=== PATIENT | male | born 1990 ===

== ENCOUNTER 2017-11-08 14:46 | Emergency (ER) | payer OTHER ==
[2017-11-08 15:53] LABS: Basophils # (Auto) 0.1 K/mm3 (0.0-0.1); Basophils % (Auto) 1.1 % (0.0-1.8); Eosinophils % (Auto) 0.4 % (0.0-4.3); Hemoglobin 15.4 gm/dl (11.8-15.2); Lymphocytes # (Auto) 1.9 K/mm3 (1.2-5.4); Lymphocytes % (Auto) 36.8 % (13.4-35.0); Mean Corpuscular HGB Conc 33 % (32-34); Mean Corpuscular Hemoglobin 30 pg (28-32); Mean Corpuscular Volume 90 fl (84-94); Monocytes # (Auto) 0.4 K/mm3 (0.0-0.8); Monocytes % (Auto) 8.2 % (0.0-7.3); Platelet Count 239 K/mm3 (140-440); Red Blood Count 5.14 M/mm3 (3.65-5.03); Red Cell Distribution Width 13.8 % (13.2-15.2)
[2017-11-08 16:09] LABS: Blood Urea Nitrogen 13 mg/dL (9-20)
[2017-11-08 16:10] LABS: BUN/Creatinine Ratio 13; Calcium 9.6 mg/dL (8.4-10.2); Hemolysis Index 48
[2017-11-08] MEDS ORDERED: ALUM-MAG HYDROX-SIMETH 200-200-20MG/5ML PO PRN (16:49)
[2017-11-08] MEDS ORDERED: TYLENOL PO PRN (16:49)
[2017-11-08] MEDS ORDERED: MILK OF MAGNESIA PO PRN (16:49)
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
[2017-11-08 17:07] LABS: Bilirubin,Urine NEG (Negative); Blood,Urine NEG (Negative); Color,Urine Yellow (Yellow); Mucus,Urine 1+ /HPF; Protein,Urine <15 mg/dL mg/dL (Negative); Urobilinogen,Urine < 2.0 mg/dL (<2.0)
[2017-11-08 17:12] LABS: Amphetamine Screen,Urine PRESUMPTIVE NEGATIVE; Benzodiazepines Screen,Urine PRESUMPTIVE NEGATIVE; Cocaine Screen,Urine PRESUMPTIVE NEGATIVE; Methadone Screen,Urine PRESUMPTIVE NEGATIVE; Opiate Screen,Urine PRESUMPTIVE NEGATIVE
[2017-11-08 17:27] LABS: Cannabinoid Screen,Urine PRESUMPTIVE POSITIVE
[2017-11-08] MEDS ORDERED: CATAPRES PO ONE (20:04)
[2017-11-09] MEDS ORDERED: HCTZ ONE (07:36)
[2017-11-09] MEDS: HCTZ PO SCH (09:54)
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
[2017-11-10] MEDS: HCTZ PO SCH (10:14)
[2017-11-10 10:18] VITALS: BP 153/85
--- NOTE | 2017-11-10 13:17 | Progress Note ---
Subjective - Reason for Consult Consult date: 11/10/17 Reason for consult: Psychiatric Follow-up Evaluation - Chief Complaint Chief complaint: "" 27-year-old AA male who presents for evaluation of mental health. The [place] Today the patient is calm and cooperative during the assessment. Mental Status Exam - Vital signs Last Vital Signs Temp 98.2 F 11/10/17 10:17 Pulse 71 11/10/17 10:17 Resp 18 11/10/17 10:17 BP 153/85 11/10/17 10:17 Pulse Ox 100 11/10/17 10:17 - Exam Narrative exam: MSE: Appearance: calm, cooperative Behavior: regular eye contact Speech: regular rate and tone Mood: "okay" Affect: congruent to mood Thought Process: circumstantial Thought Content: denies SI/HI's and AVH's Motor Activity: sitting up in bed Cognition: A/O x 3 Insight: fair Judgment: fair Assessment and Plan Impression: Unspecified Mood DO. Cannabis Use DO. Today the patient is calm and cooperative during the assessment. DDx: R/O Bipolar DO, MDD single episode Recommendation/Plan: Continue 1013 and gather collateral to determine proper dispo and treatment. Discussed generalized coping skills with patient.
== END 2017-11-10 18:51 ==
LOC: ED 14:46 → EEVIPCON 14:46 → ED 11-10 18:51
DX: F39 Unspecified mood [affective] disorder (principal); F12.10 Cannabis abuse, uncomplicated; F17.200 Nicotine dependence, unspecified, uncomplicated; Z79.899 Other long term (current) drug therapy; Z88.1 Allergy status to other antibiotic agents
CPT/HCPCS: 36415; 80048; 80307; 81001; 85025; 99285; G0480; 80320